=== PATIENT | male | born 1945 | race Caucasian/White ===

== ENCOUNTER 2017-11-16 03:24 | Emergency (ER) | payer OTHER ==
[~2017-11-16] VITALS: Ht 172.7 cm; Wt 101.8 kg
[2017-11-16] MEDS ORDERED: CEFAZOLIN 1,000 MG ONE (03:44)
[2017-11-16] MEDS ORDERED: LIDOCAINE-MPF 1%, 5ML ONE (03:44)
[2017-11-16] MEDS ORDERED: DIPH,PERTUSS(ACELL),TET VAC/PF 0.5 ML IM-VACC ONE (03:44)
[2017-11-16 03:55] VITALS: BP 136/75
[2017-11-16] MEDS ORDERED: DIPH,PERTUSS(ACELL),TET VAC/PF NC IM-VACC ONE (04:00)
[2017-11-16] MEDS ORDERED: CEFAZOLIN 1,000 MG IM ONE (04:00)
== END 2017-11-16 04:07 | disposition home or self-care (01) ==
LOC: ED 04:05
DX: S60.562A Insect bite (nonvenomous) of left hand, initial encounter (principal); T78.40XA Allergy, unspecified, initial encounter; L03.114 Cellulitis of left upper limb; Z91.018 Allergy to other foods; Y92.89 Other specified places as the place of occurrence of the external cause; W57.XXXA Bitten or stung by nonvenomous insect and other nonvenomous arthropods, initial encounter; Y93.53 Activity, golf; Y92.39 Other specified sports and athletic area as the place of occurrence of the external cause; Y99.8 Other external cause status
CPT/HCPCS: 90471; 90715; 96372; 99284; J0690

== ENCOUNTER → 2018-09-02 | Outpatient (CLI) | payer OTHER | END | disposition home or self-care (01) | LOC: CFH 07:32 | PROVIDERS: ATTEND Internal Medicine Cardiovascular Disease | DX: I08.8 Other rheumatic multiple valve diseases (principal); I10 Essential (primary) hypertension; E78.5 Hyperlipidemia, unspecified; E11.9 Type 2 diabetes mellitus without complications; Z87.891 Personal history of nicotine dependence | CPT/HCPCS: 93306 ==